=== PATIENT | male | born 1990 | race Caucasian/White ===

== ENCOUNTER → 2018-02-18 08:35 | Outpatient (CLI) | payer BC, SELFPAY ==
--- NOTE | 2018-02-18 08:35 | VAS_PTH ---
PATIENT: JOVAN HOLBROOK LOC: RAJINDER #:[id number] AGE/SX: 34/M ROOM: RE02/18/[address]: Dr. Johnny Garner MD : 1990 BED: DIS: SPEC #: [id number] RECD: 02/18/18 12:39 STATUS: JUSTYNA RUTHIE #: [id number] RUPERT: 02/18/18 08:[address]: Johnny Garner DEPT: SURGICAL PATHOLOGY RECD BY: Jolene Licea Tissues: A - Vas deferens, NOS B - Vas deferens, NOS Procedures: Surgery Specimen Level II HEADER OPERATION: Bilateral partial vasectomy PRE-OP DIAGNOSIS: Sterilization, Z30.09 TISSUE SUBMITTED: A. Right vas deferens, B. Left vas deferens MICROSCOPIC DIAGNOSIS A. Right vas deferens: Complete cross-section of vas deferens with no pathologic change. B. Left vas deferens: Complete cross-section of vas deferens with no pathologic change. AM:jonas 02/19/18 MICROSCOPIC DESCRIPTION Slides are reviewed. GROSS DESCRIPTION A - Received is one container designated right vas deferens. The specimen consists of a cylindrical segment of pink-sanford soft tissue. The fragment measures 1.5 cm in length and 0.2 cm in diameter. Serial sections do not reveal gross lesions. The specimen is serially sectioned and totally submitted in one cassette. B - Received is one container designated left vas deferens. The specimen consists of a cylindrical segment of pink-sanford soft tissue. The fragment measures 0.6 cm in length and 0.2 cm in diameter. Serial sections do not reveal gross lesions. The specimen is serially sectioned and totally submitted in one cassette. / SJ:jonas 02/18/18 TC:5 [facility] [id number] x2
[2018-10-30 13:19] LABS: Semen Analysis Post Vas ABSENT
== END ==
PROVIDERS: Referring Provider Surgery; Visit Provider Surgery
DX: Z30.2 Encounter for sterilization (principal); Z30.09 Encounter for other general counseling and advice on contraception
CPT/HCPCS: 88302; 89321

== ENCOUNTER → 2018-04-07 11:25 | Outpatient (CLI) | payer BC, SELFPAY ==
[2018-04-08 12:15] LABS: Semen Analysis Post Vas ABSENT
--- OUTSIDE RECORDS SUMMARY | 2018-07-09 20:23 | XMS RPT_ITS ---
:1990 Author Organization OHIP Care Team Providers Name Role Phone Johnny Garner Attending Unavailable Johnny Garner Attending Unavailable Neil Orantes Referring Unavailable Johnny Garner Attending Unavailable Neil Orantes Referring Unavailable Johnny Garner Attending Unavailable Johnny Garner Referring Unavailable Johnny Garner Attending Unavailable Joseline Mena Attending Unavailable PROBLEMS PROBLEMS DATE TYPE CONDITION / CODE ATTENDING STATUS SOURCE 03/03/2018 Unknown Z30.2 - Encounter Johnny Garner Active [facility] for sterilization / Community Z30.2(ICD-10) Hospital Repository 02/18/2018 Unknown Z30.09 - Encounter Johnny Garner Active [facility] for other general Community counseling and Hospital advice on Repository contraception / Z30.09(ICD-10) 07/31/2017 Admitting Unknown / [facility] [place] Repository PROCEDURES PROCEDURES No Procedure Records FoundRESULTS RESULTS SEMEN ANALYSIS POST Collected: 04/07/2018 Status: C Source: ANA VAS 11:15 AM [facility] REPOSITORY Order Comment: Comments: x2 Comments: x2 TYPE CODE TESTS RESULT OUT OF RANGE REFERENCE UNITS LAB L200.1000 Normal SEMEN ABSENT POST VAS Result Comment: CYTOSPIN PREPARATION USED FOR CONCENTRATION OF SPECIMEN PRIOR TO STAINING AND EXAMINATION Sperms are absent. Nelson Russo M.D. 04/08/18 AMENDED REPORT 04/08/18 1214 SEMEN POST VAS previously reported as: ABSENT CYTOSPIN PREPARATION USED FOR CONCENTRATION OF SPECIMEN PRIOR TO STAINING AND EXAMINATION Performed By: #### L200.1000 #### [facility] [address] [place] [address]. [place], [address] SURGERY VISIT REPORT Observed: 03/03/2018 Status: F Source: ANA 1:41 PM [facility] REPOSITORY [facility] [address] [place] [address] OFFICE VISIT Date of Service: 03/03/18 MR#: [id number] Acct: [id number] Name: JOVAN HOLBROOK Rep #: [id number] : 1990 Provider: Johnny Garner MD Age/Sex: 27/M Location: [facility] Status: Signed Intake Intake Visit Reasons: F/U Vasectomy 02/18 Chief Complaint: vasectomy Juvenile Detention Officer Required: No Is patient in pain?: No Allergies No Known Allergies Allergy (Verified 03/03/18 13:08) Subjective Details: 27-year-old gentleman returns 1 week status post bilateral partial vasectomy as a means of sterilization. Pathology is consistent with segments of vas deferens. He states that he was sore for approximately 6 days but now is much improved. Objective Details: Nicely healed bilateral scrotal incisions. No signs of infection Assessment AND Plan Problems 1. Encounter for sterilization Z30.2 Plan The patient is progressing very well status post bilateral partial vasectomy as a means of sterilization. Final pathology consistent with the same. The patient is well aware that 2- consecutive semen counts are required prior to his being released from utilizing other means of control. He has had an opportunity to ask and have questions answered. Further office follow-up can be as needed. He was provided specimen containers today. Johnny Garner M.D., F.A.C.S. Orders Orders: Coding Level of Care Code Global Post Op Diagnoses Encounter for sterilization Z30.2 03/03/18 1341 <Electronically signed by Johnny Garner MD> Date Johnny Garner MD Cosigner Signature: Date (if applicable) CC: SURGERY VISIT REPORT Observed: 02/18/2018 Status: F Source: WICKES 9:23 AM [facility] REPOSITORY [facility] [address] [place] [address] [address] [place] [address] OFFICE VISIT Date of Service: 02/18/18 MR#: [id number] Acct: [id number] Name: JOVAN HOLBROOK Rep #: [id number] : 1990 Provider: Johnny Garner MD Age/Sex: 27/M Location: [facility] Status: Signed Intake Intake Visit Reasons: Vasectomy Chief Complaint: vasectomy Juvenile Detention Officer Required: No Is patient in pain?: No Allergies No Known Allergies Allergy (Verified 02/18/18 08:40) Medications acetaminophen 300 mg-codeine 30 mg tablet 1 tab PO Q6H PRN #10 tab 02/18/18 [Rx Confirmed 02/18/18] PFSH Medical History Encounter for sterilization (Acute) Surgical History History of surgical removal of skin lesion (Acute) History of vasectomy (Acute 01/2018) Family History Mother Heart disease Father Hypertension Social History Smoking Status: Never smoker second hand exposure: No alcohol intake: current alcohol intake frequency: a few times a month substance use type: does not use caffeine: Yes seatbelt use: always HPI HPI HPI: JOVAN HOLBROOK is a 27 M who presents to the office today for bilateral partial vasectomy Office Procedures Procedure Time Out Time Out Informed consent given: Yes Consent signed: Yes Time out checklist: patient, procedure, site marked/identified, positioning of patient, supplies available, allergies confirmed, team agrees on procedure Time out staff in room: Yes Time out verified: Yes Time out date: 02/18/18 Time out time: 08:40 Vasectomy Provider Documentation Provider Documentation: Bilateral partial vasectomy Time out and informed consent was obtained. The patient was taken to the procedure room and placed supine on the table. Bilateral scrotal areas were clipper and Betadine prepped. 1% lidocaine mixed 50-50 with 0.5% Marcaine was utilized as a local anesthetic. Less than a total of 10 cc was utilized. Bilateral scrotal incisions were created. Sharp and blunt dissection was used to identify the vas deferens. A segment was cleared, the ends were crushed, and segments were excised. The ends were secured with 3-0 chromic inverted and resecured. The skin edges were approximated with simple sutures of 3-0 chromic. Topical antibiotic ointment and gauze applied. He was given activity and wound care instructions. The specimens are submitted in formalin for analysis. He is scheduled to return to my office in 1 week's time. He has been provided analgesics as prescribed. He is well aware that he has not yet cleared from utilizing other means of control. He is aware that 2 negative consecutive semen counts will be required prior to releasing him from utilizing other means of control. He is aware that this is his responsibility to complete. He has had an opportunity to ask and have questions answered. Blood loss minimal. Specimens segments of vas deferens. Complications none. Johnny Garner M.D., F.A.C.S. Vasectomy 53874 Vasectomy Assessment AND Plan Problems 1. Encounter for sterilization Z30.2 Plan Successful bilateral partial vasectomy. The patient was given activity wound care instructions. He is well aware that he is not yet cleared from utilizing other means of control. He is scheduled to return to the office in 1 week's time for surgical follow-up. A prescription of Tylenol with codeine was provided Johnny Garner M.D., F.A.C.S. Orders Orders: Medications New: Coding Level of Care Code Attention Renetta Diagnoses Encounter for sterilization Z30.2 Additional Codes Vasectomy (57383) 02/18/18 0923 <Electronically signed by Johnny Garner MD> Date Johnny Garner MD Cosigner Signature: Date (if applicable) CC: VAS DEFERENS Observed: 02/18/2018 Status: F Source: ANA (STERILIZATION) 8:35 AM [facility] REPOSITORY Patient: JOVAN HOLBROOK : 1990 (/) Acct Num: [id number] Phys: Patsy LIGHT,Johnny Unit Num: [id number] Loc: LABSPEC Specimen: [id number] Received: 02/18/18 - 1239 Spec Type: VAS TISSUES 1 TISSUES: A. Vas deferens, NOS - RIGHT B. Vas deferens, NOS - LEFT GROSS DESCRIPTION A - Received is one container designated right vas deferens. The specimen consists of a cylindrical segment of pink-sanford soft tissue. The fragment measures 1.5 cm in length and 0.2 cm in diameter. Serial sections do not reveal gross lesions. The specimen is serially sectioned and totally submitted in one cassette. B - Received is one container designated left vas deferens. The specimen consists of a cylindrical segment of pink-sanford soft tissue. The fragment measures 0.6 cm in length and 0.2 cm in diameter. Serial sections do not reveal gross lesions. The specimen is serially sectioned and totally submitted in one cassette. / SJ:jonas 02/18/18 TC:5 CPT: 81539 x2 HEADER OPERATION: Bilateral partial vasectomy PRE-OP DIAGNOSIS: Sterilization, Z30.09 TISSUE SUBMITTED: A. Right vas deferens, B. Left vas deferens MICROSCOPIC DESCRIPTION Slides are reviewed. MICROSCOPIC DIAGNOSIS A. Right vas deferens: Complete cross-section of vas deferens with no pathologic change. B. Left vas deferens: Complete cross-section of vas deferens with no pathologic change. AM:jonas 02/19/18 Signed Gómez Blanquita 02/19/18 <signature on file> Performed By: #### PVAS #### [facility] [place], [address] SURGERY VISIT REPORT Observed: 01/16/2018 Status: F Source: WICKES 3:37 PM [facility] REPOSITORY [facility] [address] [place] [address] OFFICE VISIT Date of Service: 01/16/18 MR#: [id number] Acct: [id number] Name: JOVAN HOLBROOK Rep #: [id number] : 1990 Provider: Johnny Garner MD Age/Sex: 27/M Location: [facility] Status: Signed Intake Vital Signs01/16/18 Height 5 ft 8 in 01/16/18 Weight: 225 lb Intake Visit Reasons: Vasectomy Consult Juvenile Detention Officer Required: No Is patient in pain?: No Allergies No Known Allergies Allergy (Verified 01/16/18 14:39) Medications NK 01/16/18 [History Confirmed 01/16/18] lorazepam 1 mg tablet 2 mg PO DIRECTED #2 tab 01/16/18 [Rx Confirmed 01/16/18] PFSH Surgical History History of surgical removal of skin lesion (Acute) Family History Mother Heart disease Father Hypertension Social History Smoking Status: Never smoker second hand exposure: No alcohol intake: current alcohol intake frequency: a few times a month substance use type: does not use caffeine: Yes seatbelt use: always HPI HPI HPI: JOVAN HOLBROOK, is a 27 M who presents to the office today for surgical consultation regarding bilateral partial vasectomy. The patient states that he otherwise enjoys good health. He works in an oil [employer]. He has 3 healthy children. He presents today at his own discretion to discuss sterilization a formal bilateral partial vasectomy. ROS General General: No weight change, appetite, fatigue, colon cancer, breast cancer or weakness HEENT HEENT: No difficulty swallowing, eye injury, eye surgery, swollen glands or hoarseness Endo Endocrine: No thyroid disease, diabetes mellitus, thyroid cancer, Hair loss, heat intolerance or cold intolerance Skin Skin: No rash or changing moles Musc Musculoskeletal: No back problems, arthritis, rheumatoid arthritis, gout or joint pain Cardio Cardiovascular: No murmur, pacemaker, heart disease, atrial fibrillation, high blood pressure, heart attack, heart stent, palpitations, shortness of breat with exertion or chest pain Psych Psychiatric: No depression, anxiety or hearing voices Resp Respiratory: No shortness of breath, No sleep apnea, No cough, No COPD, No asthma, No emphysema, No wheezing Gastro Gastrointestinal: No abdominal pain, No nausea or vomiting, No diarrhea, No constipation, No blood in stool, No acid reflux, No hemorrhoids, No ulcers, No gallbladder problem, No black,tarry stools Kam Hematologic: No blood thinners, No blood disorders, No bleeding, No anemia, No blood clots Neuro Neurologic: No system reviewed and no additional complaints, except as docu, No as per HPI, No abnormal walking, No abnormal hearing, No abnormal movements, No abnormal speech, No behavioral changes, No burning sensations, No confusion, No seizure-like activity, No unsteadiness, No dizziness, No localized weakness, No frequent falls, No headache(s), No lack of coordination, No loss of vision, No memory loss, No numbness, No other visual disturbances, No radiating pain, No restless legs, No sensory deficit, No fainting, No tingling, No tremor(s), No weakness, No other Exam Cardio Heart Sounds: no murmurs Other: Testicles are descended without mass, no inguinal defects, nontender Assessment AND Plan Problems 1. Encounter for sterilization education Z30.09 Plan In detail I have verbally discussed the technique, benefits, risks, alternatives to bilateral partial vasectomy as a means of sterilization. I have also additionally provided written descriptive information explaining the same. The patient has had an opportunity to ask and have questions answered. He is aware that no guarantees of success are being offered. He is aware that I consider this to be a permanent procedure. He is aware that he has the responsibility of submitting semen specimens post procedure to confirm resolution. He has had an opportunity to ask and have questions answered. He will schedule proceed at his discretion. cc: Dr Neil Garner M.D., F.A.C.S. Medications New: Coding Level of Care Code Off vis,new,level 1 Diagnoses Encounter for sterilization education Z30.09 01/16/18 1537 <Electronically signed by Johnny Garner MD> Date Johnny Garner MD Cosigner Signature: Date (if applicable) CC: Neil Orantes MD JS Observed: 07/31/2017 Status: UNK Source: [facility] 5:05 PM [facility] [place] REPOSITORY DATE OF SERVICE: 07/31/2017 A 27-year-old male with chief complaint of stomach cramping, vomiting, diarrhea this morning. It is nonbloody. No fever. 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 He starts tomorrow and was hoping to get tomorrow, Friday, and Friday off. No fever. No chills. No other associated symptoms. He was just worried that this could get worse over the weekend. PHYSICAL EXAMINATION: Vital Signs: Blood pressure 122/78, pulse 68, respiratory rate 18, temperature 98.4, pulse oximetry 97% on room air. General: He looks well. Does not appear dehydrated. Back: No CVA tenderness. Nonspecific tenderness. Overall looks well. DIAGNOSIS: Vomiting, diarrhea. I do suspect some kind of viral illness. I wrote him off from work for the days he requested August 01 to August 03. I did tell him more than that I do not think it is appropriate for this illness as well as possibilities that this would probably be under FMLA which is not necessary based on his current symptoms. The patient agrees with plan. Does not want anything for his symptoms. MD MARGOT Alexis/[id number] SSI File#: [id number] Verified/Reviewed by 08/25/17 0811 MIN [facility] PATIENT NAME: KACIE HOLBROOK [address] MEDICAL REC #: [id number] [place] [address] [facility] REPORT [facility] PHYSICIAN ALLERGIES ALLERGIES DATE TYPE / CODE NAME / CODE REACTION SEVERITY SOURCE 03/03/2018 Drug No Known Unknown [facility] Allergy/4160 Allergies/F00 [facility] [address](SNOMED 2569047(RXNOR Repository CT) M) ENCOUNTERS ENCOUNTERS ADMIT/DISCHARGE ACCOUNT ADMITTING ENCOUNTER LOCATION SOURCE NUMBER CLASS 04/07/2018 [id number] Ambulatory [place] [facility] ing:[facility]SPEC Repository 03/03/2018/ [id number] Ambulatory BMSBuilding:B [place] 1 [place] Repository 02/18/2018 [id number] Ambulatory [place] 3 [facility] ing:LABSPEC Repository 02/18/2018/ [id number] Ambulatory BMSBuilding:B [facility] 8 6 [facility] Repository 01/16/2018/ [id number] Ambulatory BMSBuilding:B [facility] 8 1 [facility] Repository 07/31/2017 [id number] Ambulatory [address] [place] g:JeremiJUVENCIO Repository PAYERS PAYERS ENCOUNTER GUARANTOR PAYER SUBSCRIBER SOURCE 04/07/2018 JOVAN [place] [id number] Primary JOVAN A YOSTDOB: Ana [place] Insurance:ANTHEMPolic [id number] [place] Number: Hospital [address]Uzu: (330) [id number] Repository [phone] () Date:[id number] [address] [place] [address] [id number]: 04/07/2018 Secondary NOT GIVENUNK [facility] Insurance:SELF PAY [facility]: Effective Repository Date:2018-04-07 03/03/2018 JOVAN A [id number] Primary JOVAN A YOSTDOB: Ana [place] Insurance:ANTHEMPolic [id number] [facility] [place] Number: Hospital [address]Uuz: (330) [id number] Repository [phone] () Date:[id number] [address] [place] [address] 69411IJ: 03/03/2018 Secondary NOT GIVENUNK [facility] Insurance:SELF PAY [facility] Number: Effective Repository Date:2018-03-03 02/18/2018 JOVAN A [id number] Primary JOVAN A YOSTDOB: Ana [place] Insurance:ANTHEMPolic [id number] [facility] [place] Number: Hospital [id number]: (330) [id number] Repository [phone] () Date:2448-93-25EL [address] [place] [address] 601[address]XW: 02/18/2018 Secondary NOT GIVENUNK [place] Insurance:SELF PAY [facility] Number: Effective Repository Date:2018-02-18 02/18/2018 JOVAN A [id number] Primary JOVAN A YOSTDOB: [place] [facility] Insurance:ANTHEMPolic [id number] [facility] [place] Number: Hospital [id number]: (330) [id number] Repository [phone] () Date:6328-84-27OV [address], [place] [address]ZK: 02/18/2018 Secondary NOT GIVENUNK [place] Insurance:SELF PAY [facility] Number: Effective Repository Date:2018-01-19 01/16/2018 JOVAN A [id number] Primary JOVAN A YOSTDOB: [place] [facility] Insurance:ANTHEMPolic [id number] [facility] [place] Number: Hospital [id number]: (330) [id number] Repository [phone] () Date:0263-39-12QB [address], [place] [address]VH: 01/16/2018 Secondary NOT GIVENUNK [facility] Insurance:SELF PAY [facility] Number: Effective Repository Date:2018-01-16 07/31/2017 KACIE O Primary [facility] [id number] Insurance:[facility] Number: Repository [place] [id number]: (330) Date:9577-26-67HW [phone] () [id number], [place] [address]NF:
== END ==
PROVIDERS: Visit Provider Surgery
DX: Z30.2 Encounter for sterilization (principal)
CPT/HCPCS: 89321